=== PATIENT | male | born 1940 | race Caucasian/White ===

== ENCOUNTER → 2020-01-12 09:11 | Outpatient (CLI) | payer MEDICARE ==
--- NOTE | 2020-01-16 07:56 | EC ---
PATIENT:LEONORA UNDERWOOD DATE OF SERVICE: 01/12/20 SEX: M MEDICAL RECORD: [id number] DATE OF : 40 LOCATION:[facility] AGE OF PATIENT: 79 ADMISSION DATE: 01/12/20 REFERRING PHYSICIAN: INTERPRETING PHYSICIAN: GOLD LACY MD ECHOCARDIOGRAM REPORT ECHO CHARGES 4 ECHO COMPLETE Date: 01/12/20 CLINICAL DIAGNOSIS: HX OF AFIB/MITRAL REGURG ECHOCARDIOGRAPHIC MEASUREMENTS (adult normal given) AC root (d.<3.7cm) 3.5 cm LV Septum d (<1.2 cm> 1.9 cm Valve Excursion 1.9 cm LV Septum (systole) 2.1 cm Left Atria (s.<4.0cm> 4.0 cm LVPW d(<1.2cm) 1.8 cm RV (d.<2.3cm) 4.4 cm LVPW (sytole) 2.0 cm LV diastole(<5.6CM) 5.2 cm MV E-F(>70mm/sec) cm LV systole 2.9 cm LVOT Diameter 1.8 cm MV exc.(>10mm) 1.8 cm Est.ejection fraction (50-75%) % DOPPLER: LVIT cm/sec A 62.0 cm/sec E 79.0 cm/sec LA cm/sec RVSP 34 mmHg LVOT 104 cm/sec AOP1/2T m/s Asc. 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 Hatfield TAPE# PACS Pericardial Effusion N DATE OF SERVICE: Adequate 2D, color flow imaging, spectral Doppler, and M-Mode. LVH is present. LV internal dimension is normal. Wall motion is normal. EF is greater than or equal to 55%. Aortic valve is tricuspid. No evidence of stenosis by Doppler interrogation. Left atrium is normal at 4.0 cm. Mitral valve shows no prolapse. Trace MR. Right-sided chambers are grossly normal. Mild TR. ECHOCARDIOGRAM REPORT [id number] LEONORA UNDERWOOD CHELA CHISHOLM TRANSINT:[id number] Voice Confirmation ID: [id number] DOCUMENT ID: [id number] GOLD LACY MD at [id number] CC: [id number] DICTATION DATE: 01/12/20 1439 HIDE OR SKIN BUFFER: 01/12/20 1835 DEP CLI 01/12/20 [place] [id number] [place] [id number]
== END | disposition home or self-care (01) ==
LOC: D.HCCECHO 09:11
PROVIDERS: ATTEND Internal Medicine Interventional Cardiology
DX: I48.91 Unspecified atrial fibrillation (principal)